=== PATIENT | male | born 1950 | race Caucasian/White ===

== ENCOUNTER → 2016-09-10 | Outpatient (CLI) | payer OTHER ==
[~2016-09-10] MED LIST: ALBU1AER9 INH; HYDR-713 PO
--- NOTE | 2016-09-10 13:46 | DIAGNOSTIC IMAGING REPORT ---
CT OF THE CHEST WITHOUT IV CONTRAST CLINICAL HISTORY: Pulmonary nodule. COMPARISON STUDY: Chest CT June 24, 2015 and November 10, 2013 and PET/CT November 30, 2013. CT DOSE: 632.40 mGy.cm TECHNIQUE: Axial images of the chest were obtained without IV contrast. Images were reviewed in the axial, sagittal, and coronal planes. IV contrast was not administered for this examination. FINDINGS: The brachiocephalic veins and superior vena cava are diminutive. This was shown on prior exams. There are no enlarged axillary, mediastinal or hilar lymph nodes. The size of the heart is normal. There is no pericardial effusion. No pneumothorax or pleural effusion is present. Mild right pleural thickening is unchanged. Central airways are patent. The subpleural opacity within the right upper lobe shown on exam of November 10, 2013 has nearly completely resolved. Mild linear residual opacities suggest scarring. Subpleural opacity within the right lower lobe reflects atelectasis or scarring. There are no suspicious pulmonary nodules. Bony thorax and upper abdomen are unremarkable with exception of a 1 cm right adrenal adenoma which is unchanged. IMPRESSION: 1. Near complete resolution of the previous described subpleural opacity within the right upper lobe shown on exam of November 10, 2013. Residual opacity reflects scarring. 2. Scattered subpleural opacities which suggest atelectasis or scarring. No suspicious pulmonary nodules. Electronically signed by: Dave Archer M.D. 09/10/2016 1:44 PM Dictated Date/Time: 09/10/2016 1:35 PM
== END | disposition home or self-care (01) ==
LOC: C.CTS 12:52
PROVIDERS: ATTEND Physician Assistant
DX: R91.1 Solitary pulmonary nodule (principal)